=== PATIENT | male | born 1985 | race Caucasian/White ===

== ENCOUNTER 2017-01-03 20:29 | Emergency (ER) | payer BC ==
[~2017-01-03] VITALS: Ht 167.6 cm; Wt 108.9 kg
[2017-01-03 21:45] VITALS: BP 148/92
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
--- NOTE | 2017-01-04 08:00 | RAD ---
Indication: Pain after fall. Technique: 3 views of the left ankle are submitted for review. No comparison is available. Findings: There is no fracture or dislocation. There is a tiny plantar calcaneal spur and spur developing at the insertion of the Achilles tendon. There is minimal soft tissue swelling about the lateral malleolus. Impression: Negative for fracture.
== END 2017-01-04 01:09 | disposition home or self-care (01) ==
LOC: ER 20:29
DX: S40.011A Contusion of right shoulder, initial encounter (principal); S90.02XA Contusion of left ankle, initial encounter; F90.9 Attention-deficit hyperactivity disorder, unspecified type; J45.909 Unspecified asthma, uncomplicated; W11.XXXA Fall on and from ladder, initial encounter; Y93.89 Activity, other specified; Y99.8 Other external cause status; Y92.89 Other specified places as the place of occurrence of the external cause
CPT/HCPCS: 73610; 99284